=== PATIENT | male | born 1990 | race Caucasian/White ===

== ENCOUNTER 2022-04-07 18:18 | Emergency (ER) | payer OTHER, SELFPAY ==
[2022-04-07 19:18] VITALS: BP 159/87; PULSE 95; RESP 20; TEMP 37.1; O2SAT 96; BMI 37.3
--- NOTE | 2022-04-07 21:53 | CRLHL7_ITS ---
For Patients: As a result of the Century Cures Act, medical imaging exams and procedure reports are released immediately into your electronic medical record. You may view this report before your referring provider. If you have questions, please contact your health care provider. DATE: 04/07/2022. CLINICAL HISTORY: Trauma; axial loading injury with severe upper neck pain. TECHNIQUE: Helical CT acquisition of the cervical spine was performed. Coronal and sagittal reformations were performed and interpreted. COMPARISON: None available. FINDINGS: There is no evidence of acute displaced fracture or traumatic malalignment of the cervical spine. Incidental note is made of incomplete fusion of the posterior ring of C1. The facets are well aligned. Vertebral body heights are maintained without evidence of significant compression deformity. No evidence of significant trauma at the craniocervical junction. No significant spinal canal stenosis. The visualized prevertebral soft tissues are unremarkable. The visualized lung apices are unremarkable. IMPRESSION: No acute displaced fracture or traumatic malalignment of the cervical spine. Please note that all CT scans at this facility use dose modulation, iterative reconstruction, and/or weight-based dosing when appropriate to reduce radiation dose to as low as reasonably achievable. Dictated by Ramses Mercedes MD @ 04/07/2022 11:13:05 PM (Electronically Signed)
--- NOTE | 2022-04-07 21:53 | CRLHL7_ITS ---
For Patients: As a result of the Century Cures Act, medical imaging exams and procedure reports are released immediately into your electronic medical record. You may view this report before your referring provider. If you have questions, please contact your health care provider. DATE: 04/07/2022. CLINICAL HISTORY: Trauma and severe headache. TECHNIQUE: Standard helical CT image acquisition of the brain was performed. COMPARISON: None available. FINDINGS: There is no intracranial hemorrhage. No extra-axial collection, mass effect, or midline shift. Selby-white matter differentiation is preserved. The ventricles are normal in size and morphology for patient age. No displaced calvarial fracture. The orbits are unremarkable. Mucous retention cyst within the right maxillary sinus. The mastoid air cells are unremarkable. The soft tissues are unremarkable. IMPRESSION: No CT evidence of acute intracranial abnormality or closed-head injury. Please note that all CT scans at this facility use dose modulation, iterative reconstruction, and/or weight-based dosing when appropriate to reduce radiation dose to as low as reasonably achievable. Dictated by Ramses Mercedes MD @ 04/07/2022 11:05:20 PM (Electronically Signed)
[2022-04-07] MEDS: 0.9 % SODIUM CHLORIDE 1000 ml 1,000 ML IV (22:00)
[2022-04-07 22:18] VITALS: BP 145/78; PULSE 89; RESP 20; TEMP 36.7; O2SAT 96
[2022-04-07 22:19] VITALS: TEMP 36.7
[2022-04-07] MEDS: KETOROLAC 30 MG/ML inj IVP (22:19)
[2022-04-07 22:56] VITALS: TEMP 36.7
--- NOTE | 2022-04-08 12:21 | ED_ITS ---
HPI - Head Injury General Chief complaint: Head Injury/Pain Stated complaint: Hit head at 1920 on Time Seen by Provider: 04/07/22 21:48 History of Present Illness HPI Narrative: 31-year-old man presenting to the emergency department with complaint of headache and neck pain. 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 Pain escalated after about 20 minutes and has continued to do so over the last few days. Really more noticeable over the last 2 days. Has had a spasm of pain in his back as well -I believe right side. Initially with the injury he felt a twinge at the upper portion of his neck/base of his skull. Is photophobic now with his headache which seems to be at the back of his head but really encompassing the front and total of his head. And described on triage some jitteriness to his left eye. Is not recounting history of concussion. There was no loss of consciousness. He has had some nausea but not so much now. No focal weakness. Works for [employer]. Related Data Home Medications Medication Instructions Recorded Confirmed bupropion HCl 300 mg 24 hr tablet, mg PO 11/17/21 03/18/22 extended release lamotrigine 200 mg tablet 200 mg PO QDAY 11/17/21 04/07/22 dextroamphetamine-amphetamine ER 30 mg PO DAILY 04/07/22 04/07/22 30 mg 24hr capsule,extend release (Adderall XR) Allergies Allergy/AdvReac Type Severity Reaction Status Date / Time No Known Drug Allergies Allergy Verified 03/18/22 18:22 Review of Systems Status of ROS: Reports: 6 or more systems reviewed and unremarkable except as noted in History and below [facility] Social History Smoking Status: Never smoker Do you use any of these nicotine containing products: None How often do you have a drink containing alcohol: monthly or less How many standard drinks containing alcohol do you have on a typical day: 1 or 2 AUDIT-C Alcohol total score: 1 Non-prescribed substance use: denies use Exam Narrative: Exam Narrative: In busy emergency department I am seeing Jay in the fuchs. He has his hat pulled down over his eyes in apparent affect to hide from the light. He is speaking fluidly. Breathing easily. Head looks to be atraumatic. No Rodrigues sign. He is tender to palpation in the midline upper neck and paracervical musculature. Also at the base of the occiput. Neck appears to be supple otherwise. Cardiovascular with regular rate and rhythm. Lungs are clear. Moving all extremities without difficulty. No edema and well perfused. Cranial nerves 2-12 intact. No apparent loss of sensation. Pupils are brisk and equal. Const: Vital Signs, click to edit/add: Vital Signs - 24 hr 04/07/22 19:18 04/07/22 22:18 04/07/22 22:19 Temperature 98.8 F 98.1 F 98.1 F Pulse Rate [Right Pulse Oximeter] 95 89 Respiratory Rate 20 20 Blood Pressure [Ri ght Upper Arm] 159/87 H 145/78 H Pulse Oximetry 96 96 Oxygen Delivery Me thod Room Air Room Air 04/07/22 22:56 Temperature 98.1 F Pulse Rate [Right Pulse Oximeter] Respiratory Rate Blood Pressure [Ri ght Upper Arm] Pulse Oximetry Oxygen Delivery Me thod Documenting provider has reviewed patient's vital signs: yes Course Vital Signs Vital signs: Initial Vital Signs Temperature 98.8 F 04/07/22 19:18 Temperature Source Temporal Artery Scan 04/07/22 19:18 Pulse Rate 95 04/07/22 19:18 Respiratory Rate 20 04/07/22 19:18 Blood Pressure 159/87 H 04/07/22 19:18 Blood Pressure Mean 111 04/07/22 19:18 Blood Pressure Position Sitting 04/07/22 19:18 Pulse Oximetry 96 04/07/22 19:18 Oxygen Delivery Method 04/07/22 19:18 Vital Signs Temperature 98.8 F 04/07/22 19:18 Pulse Rate 95 04/07/22 19:18 Respiratory Rate 20 04/07/22 19:18 Blood Pressure 159/87 H 04/07/22 19:18 Pulse Oximetry 96 04/07/22 19:18 Oxygen Delivery Method 04/07/22 19:18 Temperature 98.1 F 04/07/22 22:56 Pulse Rate 89 04/07/22 22:18 Respiratory Rate 20 04/07/22 22:18 Blood Pressure 145/78 H 04/07/22 22:18 Pulse Oximetry 96 04/07/22 22:18 Oxygen Delivery Method 04/07/22 22:18 MDM - Head Injury MDM Narrative Medical decision making narrative: I discussed that I thought that the head imaging would probably be low yield but since I do think that would be a good idea to scan his neck we can proceed with this as well as does have rather severe headache. I think this is probably more to tension related. He would appreciate treatment to try to break his headache as he has been unsuccessful at home. IV was placed receives ketorolac and normal saline. Lab dressed in the emergency department. Ultimately markedly improved he noted that he felt as well as when this all started. I did review images of head CT and cervical spine. 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 Medical Records Attestation: I reviewed the patient's medical records. Discharge Plan Discharge Clinical Impression: Headache, Neck strain Patient Disposition: Home, Self-Care Condition: Improved Additional Instructions: Focus on hydration. Over the next few days might continue repeated gentle pull-down stretches of your neck in the anterior plane. Temporarily can take up to 800 mg of ibuprofen per dose or up to 1000 mg of acetaminophen per dose. Prescriptions: No Action bupropion HCl 300 mg tablet extended release 24 hr PO Label Comments: Take 300 mg ( 1 tablet ) daily lamotrigine 200 mg tablet 200 mg PO QDAY Label Comments: Take 200 mg ( 1 tablet ) daily by mouth. CALL RANJIT IF A RASH OCCURS. dextroamphetamine-amphetamine [Adderall XR] 30 mg capsule,extended release 24hr 30 mg PO DAILY Label Comments: TAKE 1 CAPSULE DAILY BY MOUTH IN THE MORNING Follow Up/Referrals: Provider,Not a Local [Primary Care Provider] - Stand Alone Forms: [facility] [facility] Info Instructions
== END 2022-04-08 00:16 | disposition home or self-care (01) ==
PROVIDERS: Emergency Provider Family Medicine
DX: S09.90XA Unspecified injury of head, initial encounter (principal); R51.9 Headache, unspecified; S16.1XXA Strain of muscle, fascia and tendon at neck level, initial encounter; W22.8XXA Striking against or struck by other objects, initial encounter; Y93.89 Activity, other specified; Y92.812 Truck as the place of occurrence of the external cause; Y99.8 Other external cause status
CPT/HCPCS: 70450; 72125; 96361; 96374; 99284; J1885; J7030